=== PATIENT | female | born 1990 | race Caucasian/White ===

== ENCOUNTER 2017-02-13 14:46 | Emergency (ER) | payer OTHER ==
--- NOTE | 2017-02-13 14:56 | EDPHY ---
H & P Time Seen by Provider: 02/13/17 14:55 HPI/ROS: CHIEF COMPLAINT: Seizure, avulsed tooth HISTORY OF PRESENT ILLNESS: The patient is a 26 y/o female, with a seizure disorder history, arriving today after a seizure and complaining of facial pain and an avulsed front tooth. She reports she has been tapering her Keppra dose under her neurologist's supervision and took her last dose on Thursday, 3 days ago. She's been concurrently increasing her Lamictal dose. Today she had her first break-through seizure in 5 years and struck her face on the ground knocking out her upper right lateral incisor. She was able to recover the tooth including the root and brought it with her to the ED. She has significant dental pain at the site and around her central right incisor that is aggravated by air movement across the open dental cavity. She denies other pertinent medical history. REVIEW OF SYSTEMS: A ten point review of systems was performed and is negative with the exception of the items mentioned in the HPI. (Tatiana Suggs) - Medical/Surgical History PMH: Seizure disorder history. (Tatiana Suggs) - Social History Additional Social History: From [place]. 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 Nonsmoker. (Tatiana Suggs) - Physical Exam Exam: General Appearance: Alert. Vital signs reviewed. Head: laceration under chin, one cm. Normocephalic. Eyes: Pupils equal and round, no conjunctival injection, no discharge. Anicteric. ENT, Mouth: Mucous membranes are moist, no oropharyngeal erythema or edema. Right lateral incisor tooth #7 completely avulsed, gum is disrupted at cavity, significant tenderness at site. Tenderness with percussion of right central incisor #8, which is also loose and chipped on the biting surface. No trismus. No hemotympanum. No septal hematoma. Neck: No lymphadenopathy, supple. Nontender to palpation over the cervical spine. Respiratory: Lungs are clear to auscultation; no wheezes, rales, or rhonchi. Cardiovascular: Regular rate and rhythm; no murmur, rub, or gallop. Gastrointestinal: Abdomen is soft and nontender, no masses or organomegaly, bowel sounds normal. Skin: Warm and dry, no rashes on exposed skin, normal color. Back: Nontender to palpation over the thoracolumbar spine. No CVAT. Extremities: No lower extremity edema, no calf tenderness or swelling. Neurological: Alert and oriented. Moving all four extremities easily and equally. CN 2-12 intact (VA not tested). Strength 5/5 throughout, sensation intact to light touch. Psychiatric: Normal affect. (Tatiana Suggs) Constitutional: Initial Vital Signs Temperature (C) 36.4 C 02/13/17 14:54 Heart Rate 93 02/13/17 14:54 Respiratory Rate 18 02/13/17 14:54 Blood Pressure 118/84 H 02/13/17 14:54 O2 Sat (%) 98 02/13/17 14:54 O2 Delivery Mode Room Air Allergies/Adverse Reactions: No Known Allergies Allergy (Unverified 02/13/17 14:53) Home Medications: Medication Instructions Recorded Bcp 02/13/17 Doxycycline Hyclate [Doxycycline] 100 mg PO BID #10 cap 02/13/17 Ibs Med 02/13/17 Lamictal 02/13/17 Prozac 40 mg 02/13/17 levETIRAcetam [Keppra Xr] 1,500 mg PO DAILY #60 tab.sr.24h 02/13/17 ED Images - Head Mouth: 1 - avulsed including root 2 - Chip along biting surface, tooth is loose. Medical Decision Making - Diagnostics Imaging: Discussed imaging studies w/ call center assistant Radiologist, I viewed and interpreted images myself Procedures: Procedure: Laceration repair. I was requested by to perform wound closure I explained the indications, risks and benefits for both laceration repair and anesthetic administration. Verbal consent was obtained from the patient and parent. The laceration on the inferior chin was anesthetized using topical anesthetic . After anesthetic administered the patient was observed for a period of time and had no apparent adverse effects. The wound was cleaned, prepped, draped in normal sterile fashion and explored to its base. No foreign body seen, no foreign bodies palpated. There were no deep structures involved. The wound was repaired with 4 simple interrupted 6 0 Prolene sutures. The wound repair was simple. The procedure was performed by myself. Patient has been informed that scarring will occur, although efforts have been made to minimize this. Procedure: Stabilization of dental avulsion Indications: Dental avulsion of tooth 7. Tooth 7. Was reinserted. Using usual and customary technique for Merrill Patrick , tooth 7 was stabilized. Patient was re-evaluated at multiple intervals and the tooth has been stabilized/splinted. Patient tolerated procedure well. (Edilson Myers) ED Course/Re-evaluation: IV established. 100mg IV Fentanyl administered. 750mg IV Keppra ordered. Maxillofacial CT ordered to rule out fracture. I numbed the area with 1% lidocaine and attempted to replant the tooth; however , this was unsuccessful as her gum tissue would not hold it in place. No oral surgeon available, but I spoke with Dr. Washington; he can see her on Thursday. 1528: RN informed me patient is beginning to develop an aura. 2mg IV Ativan administered as Keppra is still coming from pharmacy. Patient continues to have bleeding from the site. 500mg TP TXA ordered. 1602: Emanuel Thacker, radiologist, reports small alveolar ridge fracture. 1610: Reassessed patient and discussed imaging results. Alveolar ridge fracture at the site of the avulsed tooth. AURELIO Myers will repair chin laceration and attempt to replace tooth (now that bleeding is controlled and patient is more comfortable) and hope tooth in place. 1729: Reassessed patient. The temporary bonding procedure is working well at this time. Her therapist at bedside states the patient is in a "transitional program to learn life skills." They have a residential facility with 24-hour care available for the patient to stay at over the weekend. She states it is not related to drug or alcohol use, but is otherwise not forthcoming about this program. RN has discussed patient's status with her parents with patient's consent. I have left a message with her neurologist in [place] regarding my plan to resume her Keppra on discharge. She with follow up with oral surgery on Thursday. Standard laceration discharge instructions and return precautions given. 1813: Consulted with Dr. Grover, patient's neurologist. He tells me he was unaware she was tapering her Keppra. He recommends 1500mg QD if she will take it. I discussed this with the patient and she agrees with discharge plan. ( Tatiana Suggs) - Data Points Laboratory Results: Laboratory Results 02/13/17 15:15 02/13/17 15:15 Medications Given: Discontinued Medications Hydrocodone Bitart/Acetaminophen ([place] 5/325mg Prepack#6) 1 btl TAKEHOME EDNOW ONE Stop: 02/13/17 19:09 Last Admin: 02/13/17 19:18 Dose: 1 btl Fentanyl (Sublimaze) 100 mcg IVP EDNOW ONE Stop: 02/13/17 15:35 Last Admin: 02/13/17 15:15 Dose: 100 mcg Levetiracetam 750 mg/ Sodium (Chloride) 107.5 mls @ 420 mls/hr IV ONCE ONE Stop: 02/13/17 15:37 Last Admin: 02/13/17 16:01 Dose: 107.5 mls Sodium Chloride (Ns) 1,000 mls @ 0 mls/hr IV ONCE ONE PRN Reason: Wide Open Stop: 02/13/17 15:34 Last Admin: 02/13/17 15:10 Dose: 1,000 mls Lorazepam (Ativan Injection) 2 mg IVP EDNOW ONE Stop: 02/13/17 15:34 Last Admin: 02/13/17 15:30 Dose: 2 mg Octyl Cyanoacrylate (Dermabond) 1 each TP EDNOW ONE Stop: 02/13/17 16:23 Last Admin: 02/13/17 16:42 Dose: 1 each Octyl Cyanoacrylate (Dermabond) 1 each TP EDNOW ONE Stop: 02/13/17 16:23 Last Admin: 02/13/17 16:42 Dose: 1 each Tetracaine/Epinephrine/Lidocaine (Let Gel Topical) 1 ea TP EDNOW ONE Stop: 02/13/17 15:34 Last Admin: 02/13/17 15:15 Dose: 1 ea Tranexamic Acid (Cyklokapron) 500 mg TP EDNOW ONE Stop: 02/13/17 15:53 Last Admin: 02/13/17 16:18 Dose: 500 mg Departure - Departure Disposition: Home, Routine, Self-Care Clinical Impression: right lateral incisior, Seizure Avulsion of tooth due to trauma Qualifiers: Encounter type: initial encounter Qualified Code(s): S03.2XXA - Dislocation of tooth, initial encounter Closed fracture of alveolar ridge of maxilla Qualifiers: Encounter type: initial encounter Qualified Code(s): S02.42XA - Fracture of alveolus of maxilla, initial encounter for closed fracture Chin laceration Qualifiers: Encounter type: initial encounter Qualified Code(s): S01.81XA - Laceration without foreign body of other part of head, initial encounter Condition: Good Instructions: Soft Diet (ED), Acute Dental Trauma (ED), Recurrent Seizures in Adults (ED), Facial Laceration (ED) Additional Instructions: 1. Follow up with Dr. Washington, oral surgeon, on Thursday. Follow a liquid diet until then and take care to not dislodge the temporary bonding over your tooth. Call Dr. Washington's office first thing Thursday morning to make an appointment. Tell them you have a completely avulsed lateral incisor (tooth #7) that has been replanted. 2. Use 650mg Tylenol every 4-6 hours as needed for pain over the next 2-3 days. Apply ice to sore areas. 3. Return for chin suture removal in 5-7 days. 4. Take Doxycycline as prescribed. Be sure to complete the entire prescription. 5. Take 1500mg Keppra daily as prescribed. You will be due for a second 750mg dose when you get home tonight. Follow up with your neurologist or the local neurologist, Dr. Ace, you have been referred to this week. No driving or other activities that could put you or others at risk in case of recurrent seizure until cleared by a neurologist. 6. Return to the ED for recurrent seizures, severe pain, fever, weakness or numbness on one side of your body, or other worsening of condition. Referrals: EDITH THOMAS [Other] - As per Instructions Viktor Washington DDS [Doctor of Dental Surgery] - As per Instructions Patrick Ace DO [Medical Doctor] - As per Instructions Prescriptions: Doxycycline Hyclate [Doxycycline] 100 mg PO BID #10 cap levETIRAcetam [Keppra Xr] 1,500 mg PO DAILY #60 tab.sr.24h Report Scribed for: Tatiana Suggs Report Scribed by: Cyndi Couch Date of Report: 02/13/17 Time of Report: 15:14 Physician Review and Approval Statement: 02/13/17 14:56 Portions of this note were transcribed by the medical chief technician. I, Dr. Tatiana Suggs, personally performed the history, physical exam, and medical decision- making; and confirmed the accuracy of the information in the transcribed note. ( Tatiana Suggs)
[2017-02-13] MEDS ORDERED: LET GEL TOPICAL 1 EA SYR TP ONE ×2 (15:09→15:33)
[2017-02-13] MEDS ORDERED: fentaNYL 100 MCG/2 ML INJ ONE (15:15)
[2017-02-13] MEDS ORDERED: levETIRAcetam 750 MG in NS 100 ML IV ONE (15:22)
[2017-02-13] MEDS ORDERED: LORazepam 2 MG/ML INJ IVP ONE (15:33)
[2017-02-13] MEDS ORDERED: NS 1,000 ML IV ONE (15:33)
[2017-02-13] MEDS ORDERED: fentaNYL 100 MCG/2 ML INJ IVP ONE (15:34)
[2017-02-13 15:42] LABS: % IMMATURE GRANULYOCYTES 1.1 % (0.0-1.1); ABSOLUTE IMMATURE GRANULOCYTES 0.11 10^3/uL (0.00-0.10); ADD DIFF? NO; ADD MORPH? NO; ADD SCAN? NO; ATYPICAL LYMPHOCYTE FLAG 0 (0-99); FRAGMENT RBC FLAG 0 (0-99); HEMATOCRIT 38.8 % (38.0-47.0); HEMOGLOBIN 12.6 g/dL (12.6-16.3); LEFT SHIFT FLG 10 (0-99); LIPEMIA HEMOLYSIS FLAG 80 (0-99); MEAN CELL HEMOGLOBIN 30.9 pg (27.9-34.1); MEAN CELL HEMOGLOBIN CONCENTR. 32.5 g/dL (32.4-36.7); MEAN CELL VOLUME 95.1 fL (81.5-99.8); MEAN PLATELET VOLUME 10.7 fL (8.7-11.7); PLATELET CLUMPS FLAG 0 (0-99); PLATELET COUNT 445 10^3/uL (150-400); RED BLOOD CELL COUNT 4.08 10^6/uL (4.18-5.33); RED CELL DISTRIBUTION WIDTH 13.8 % (11.5-15.2)
[2017-02-13] MEDS ORDERED: TRANEXAMIC ACID 1,000 MG/10 ML VIAL TP ONE (15:52)
[2017-02-13 16:02] LABS: ANION GAP 13 mEq/L (8-16); CALCIUM 9.7 mg/dL (8.5-10.4); CARBON DIOXIDE 23 mEq/l (22-31); CHLORIDE 101 mEq/L (97-110); CREATININE 0.7 mg/dL (0.6-1.0); GLOMERULAR FILTRATION RATE > 60; GLUCOSE 112 mg/dL (70-100); SODIUM 137 mEq/L (134-144)
[2017-02-13] MEDS ORDERED: SKIN ADHESIVE (DERMABOND) 1 EACH TP ONE ×3 (16:22→16:26)
[2017-02-13 18:52] VITALS: BP 108/77; PULSE 95; RESP 22; TEMP 98.1; O2SAT 97
[2017-02-13] MEDS ORDERED: HYDROCOD/APAP 5/325 PREPACK#6 BTL TAKEHOME ONE (19:08)
== END 2017-02-13 19:16 | disposition home or self-care (01) ==
PROC: 0HQ1XZZ Repair Face Skin, External Approach (ICD-10-PCS; principal; 2017-02-13)
DX: S02.42XA Fracture of alveolus of maxilla, initial encounter for closed fracture (principal); S03.2XXA Dislocation of tooth, initial encounter; S01.81XA Laceration without foreign body of other part of head, initial encounter; G40.909 Epilepsy, unspecified, not intractable, without status epilepticus; W22.8XXA Striking against or struck by other objects, initial encounter
CPT/HCPCS: 80175-90; 96374; J1953; J3010